=== PATIENT | female | born 1980 | race Two or more races ===

== ENCOUNTER 2024-04-14 10:14 | Emergency (ER) | payer OTHER ==
[~2024-04-14] VITALS: Ht 165.1 cm; Wt 70.3 kg
[2024-04-14] MEDS ORDERED: LEVALBUTEROL HCL 1.25 MG/3 ML SOLUTION IH STA (11:44)
[2024-04-14] MEDS ORDERED: BUDESONIDE 0.5 MG/2 ML AMPUL.NEB IH STA (11:45)
[2024-04-14 12:55] LABS: HEMATOCRIT 39.2 % (36.0-45.00); MEAN CELL VOLUME 88.6 fL (80.00-100.00); MEAN CORPUSCULAR HEMOGLOBIN 29.4 pg (27.00-32.0); MEAN CORPUSCULAR HGB CONC 33.2 g/dl (32.0-36.0); PLATELET COUNT 388 K/uL (150-450); RED BLOOD COUNT 4.43 M/uL (4.00-6.00); RED CELL DISTRIBUTION WIDTH 13.1 % (11.5-14.5)
[2024-04-14] MEDS ORDERED: ACETAMINOPHEN 500 MG GEL..CAP PO STA (13:05)
[2024-04-14] MEDS ORDERED: ACETAMINOPHEN 500 MG GEL..CAP PO ONE (13:11)
[2024-04-14] MEDS ORDERED: LEVALBUTEROL HCL 1.25 MG/3 ML SOLUTION IH ONE (14:15)
[2024-04-14] MEDS ORDERED: BUDESONIDE 0.5 MG/2 ML AMPUL.NEB IH ONE (14:15)
[2024-04-14] MEDS ORDERED: HYDROCODONE/CHLORPHEN P-STIREX 5 ML ML PO STA (17:26)
[2024-04-14] MEDS ORDERED: CEFTRIAXONE SODIUM 1,000 MG VIAL IM STA (17:26)
[2024-04-14] MEDS ORDERED: CEFTRIAXONE SODIUM 1,000 MG VIAL ONE (17:34)
== END 2024-04-14 17:44 | disposition home or self-care (01) ==
LOC: ER 10:16
PROVIDERS: General Practice
DX: J06.9 Acute upper respiratory infection, unspecified (principal); R50.9 Fever, unspecified; Z88.6 Allergy status to analgesic agent; J45.909 Unspecified asthma, uncomplicated; Z20.822 Contact with and (suspected) exposure to COVID-19